=== PATIENT | male | born 1985 | race Caucasian/White ===

== ENCOUNTER 2024-04-25 23:35 | Emergency (ER) | payer MEDICAID ==
[~2024-04-25] VITALS: Ht 182.9 cm; Wt 131.5 kg
[2024-04-25 23:40] VITALS: BP_SYST 170; PULSE 94; RESP 18; TEMP 98; O2SAT 98
[2024-04-26] MEDS: KETOROLAC TROMETHAMINE 30 MG VIAL IM ONE (00:10)
[2024-04-26 00:27] VITALS: BP_SYST 151; PULSE 91; RESP 18; TEMP 97.7; O2SAT 97
== END 2024-04-26 00:27 | disposition home or self-care (01) ==
LOC: SED 23:35
DX: M79.602 Pain in left arm (principal)
CPT/HCPCS: 99283; 96372; J1885